=== PATIENT | male | born 1975 | race Caucasian/White ===

== ENCOUNTER 2016-07-24 05:33 | Emergency (ER) | payer BC ==
[~2016-07-24] VITALS: Ht 177.8 cm; Wt 103.5 kg
[~2016-07-24 05:33] MED LIST: ANTIVERT25 MG PO; PREDNISONE10 MG PO
[2016-07-24 06:37] LABS: BASOPHIL COUNT 0.1 K/uL (0-0.1); EOSINOPHIL (%) 1.3 % (0-5); EOSINOPHIL COUNT 0.1 K/uL (0-0.3); HEMATOCRIT 43.2 % (38.0-50.0); IMMATURE GRANULOCYTE (%) 0.1 % (0.0-0.7); IMMATURE GRANULOCYTE COUNT 0.1 K/uL; LYMPHOCYTE COUNT 1.9 K/uL (1.0-2.8); MCH 31.6 PG (29.0-34.0); MCHC 34.5 G/DL (30.0-36.0); MCV 91.7 FL (86-99); MEAN PLAT.VOLUME 10.1 uM^3 (9.0-12.4); MONOCYTE (%) 10.7 % (3-12); MONOCYTE COUNT 0.8 K/uL (0-0.8); NEUTROPHIL (%) 60.2 % (45-76); NEUTROPHIL COUNT 4.3 K/uL (1.8-6.4); PLATELET COUNT 236 K/uL (156-360); RBC DIS.WIDTH-CV 13.5 % (11.8-14.6); RBC DIS.WIDTH-SD 44.5 % (39-53); RED BLOOD COUNT 4.71 M/uL (4.00-5.50); WHITE BLOOD COUNT 7.1 K/uL (4.1-10.2)
[2016-07-24 06:48] LABS: CHLORIDE 103 mEq/L (99-109); POTASSIUM 3.9 mEq/L (3.7-5.4); SODIUM 137 mEq/L (136-147)
[2016-07-24 06:50] LABS: GLUCOSE 111 mg/dL (70-99)
[2016-07-24 06:51] LABS: ANION GAP 11 MEQ/L (2-14)
[2016-07-24 06:53] LABS: GFR ESTIMATE (CALCULATED) > 59 mL/min/
[2016-07-24 06:54] LABS: UREA NITROGEN (BUN) 10 mg/dL (9-23)
[2016-07-24 07:29] LABS: DIRECT BILIRUBIN 0.1 mg/dL (0.0-0.3); SAMPLE HEMOLYSIS CHECK 0; SAMPLE ICTERIC CHECK 0; SAMPLE LIPEMIA CHECK 0; TOTAL BILIRUBIN 0.5 MG/DL (0.0-1.0)
[2016-07-24 07:35] LABS: ALKALINE PHOSPHATASE 108 IU/L (3-129)
[2016-07-24 09:34] LABS: ADD MIUA? NO; BILIRUBIN NEGATIVE; BLOOD NEGATIVE; COLOR YELLOW ((YELLOW)); GLUCOSE (STRIP) NEGATIVE; KETONES NEGATIVE; LEUKOCYTES NEGATIVE; NITRITE NEGATIVE; PROTEIN (STRIP) NEGATIVE; SPECIFIC GRAVITY 1.015 (1.000-1.030); UCUL ADDED? NO; UROBILINOGEN 0.2 MG/DL (0.2-1.0)
[2016-07-24] MEDS ORDERED: LIBRIUM25 MG PO (10:11)
[2016-07-24 10:30] VITALS: BP 143/87
== END 2016-07-24 10:34 | disposition home or self-care (01) ==
LOC: EME 05:33
PROVIDERS: Emergency Medicine
DX: R42 Dizziness and giddiness (principal); F10.20 Alcohol dependence, uncomplicated; I10 Essential (primary) hypertension
CPT/HCPCS: 71020; 80048; 80076; 81003; 83605; 85025; 99281; 99285; J2060; J7030